=== PATIENT | male | born 1990 | race Two or more races ===

== ENCOUNTER 2024-06-25 08:57 | Emergency (ER) | payer MEDICAID, OTHER ==
[~2024-06-25] VITALS: Ht 157.5 cm; Wt 82.4 kg
[2024-06-25 09:51] VITALS: BP 147/87; PULSE 69; RESP 18; TEMP 97.6; O2SAT 98
[2024-06-25] MEDS ORDERED: IBUP1TAB5 PO (10:26)
== END 2024-06-25 10:27 | disposition home or self-care (01) ==
LOC: ER 09:02
DX: S01.81XD Laceration without foreign body of other part of head, subsequent encounter (principal); Z48.00 Encounter for change or removal of nonsurgical wound dressing; X58.XXXD Exposure to other specified factors, subsequent encounter